=== PATIENT | female | born 1955 | race Caucasian/White ===

== ENCOUNTER 2020-09-07 15:43 | Observation (INO) | payer BC, MEDICARE, OTHER ==
[2020-09-07 16:11] LABS: BASOPHIL % 0.6 % (0.0-0.4); Basophil (Absolute #) 0.06 (0-0.4); Eosinophil % 1.7 % (0.00-5.0); Eosinophil (Absolute #) 0.16 (0-0.5); Hematocrit 39.8 % (35-47); Hemoglobin 14.3 gm/dl (12.0-16.0); Lymphocyte (Absolute #) 2.77 (1.0-4.6); Lymphocytes % 28.8 % (24.0-44.0); Mean Cell Volume 81.7 fl (78-100); Mean Corpuscular Hemoglobin 29.4 pg (26-32); Mean Corpuscular Hgb Concent. 35.9 g/dl (32-36); Mean Platelet Volume 9.8 fl (7.5-11.0); Monocyte (Absolute #) 0.72 (0.0-1.3); Monocytes % 7.5 % (0.0-12.0); Neutrophil % 61.4 % (36.0-66.0); Platelet Count 331 K/mm3 (150-450); Red Blood Count 4.87 M/mm3 (4.1-5.4); Red Cell Distribution Width 13.5 % (11.5-14.0); White Blood Count 9.6 K/mm3 (4.0-10.5)
[2020-09-07 16:19] LABS: ALKALINE PHOSPHATASE 145 U/L (38-126); ANION GAP 10.9 MEQ/L (5-15); BLOOD UREA NITROGEN 22 mg/dL (7-17); CHLORIDE 104 mmol/L (98-107); Calcium 9.8 mg/dL (8.4-10.2); Carbon Dioxide 25 mmol/L (22-30); Creatinine 1 0.71 mg/dL (0.52-1.04); EST GLOMERULAR FILTRATION RATE > 60.0 ML/MIN; Glucose 343 mg/dL (74-106); Potassium 3.8 mmol/L (3.5-5.1); SGOT/AST 38 U/L (14-36); SGPT/ALT 14 U/L (0-35); SODIUM 135 mmol/L (137-145); Total Protein 7.9 g/dL (6.3-8.2)
--- NOTE | 2020-09-07 16:19 | ERPHSYRPT ---
- History of Present Illness Time Seen by Provider: 09/07/20 15:50 Source: patient Exam Limitations: no limitations Patient Subjective Stated Complaint: Pt states "I had a stroke two years ago in september, it was a brainstem stroke. Yesterday I had a headache. Today when I woke up, i was ok, then around 10 am my speech is wrong. I am slurring and cannot get words." "My left hand feels all tingly." Triage Nursing Assessment: Pt presented alert and oriented X 3, skin pwd Pt ambulates with an upright steady gait, able to speak in full sentences pt speech slightly slurred and delayed. PT able to stand on her own. Physician History: 64 years old female with history of previous stroke with left hemianopsia and s ome issues with gait but still able to walk without assistance at baseline presented in the ER with chief complaint of slurring of speech since 10 AM. Patient reports she woke up normally and around 10 AM started to have slurring of speech which is gradually clearing up but still not at her baseline. She also report increasing wobbliness of gait than her baseline with bilateral lower extremity weakness a little more on the left than the right. She denies any weakness in the upper extremities. She also reports some tingling sensation in the left arm/hand but no weakness. Denies facial numbness/droop or difficulty swallowing. Denies any chest pain palpitations or shortness of breath. Denies any sick contact. No fever or chills reported. Patient reports she has a short-term memory loss from her previous stroke Timing/Duration: hour(s) (6), sudden Severity: mild, moderate Character of Deficits: impaired speech Deficits: no difficulties Baseline/Normal Cognition: alert oriented x 3 Current Cognition: alert oriented x 3 Associated Symptoms: nausea, slurred speech Allergies/Adverse Reactions: bee venom protein (honey bee) Allergy (Unknown, Verified 09/07/20 20:15) Vomiting patient states she is allergic to all types of bees. Hx Tetanus, Diphtheria Vaccination/Date Given: No Hx Influenza Vaccination/Date Given: No Hx Pneumococcal Vaccination/Date Given: No Immunizations Up to Date: Yes Travel Risk - International Travel Have you traveled outside of the country in past 3 weeks: No - Coronavirus Screening Are you exhibiting any of the following symptoms?: No Close contact with a COVID-19 positive Pt in past 14-21 Days: No - Review of Systems Constitutional: No Symptoms Ears, Nose, & Throat: No Symptoms Respiratory: No Symptoms Cardiac: No Symptoms Abdominal/Gastrointestinal: No Symptoms Genitourinary Symptoms: No Symptoms Musculoskeletal: No Symptoms Skin: No Symptoms Neurological: Sensory Changes Endocrine: No Symptoms Hematologic/Lymphatic: No Symptoms Immunological/Allergic: No Symptoms - Past Medical History Pertinent Past Medical History: Yes Neurological History: Stroke ENT History: No Pertinent History Cardiac History: High Cholesterol, Hypertension, Myocardial Infarction (CT) Respiratory History: No Pertinent History Endocrine Medical History: Diabetes Type I Musculoskeletal History: No Pertinent History GI Medical History: No Pertinent History History: No Pertinent History Psycho-Social History: Anxiety, Depression Female Reproductive Disorders: No Pertinent History - Past Surgical History Past Surgical History: Yes Other Surgical History: heart cath with stent placement - Social History Smoking Status: Current every day smoker How long have you smoked: 6 months Exposure to second hand smoke: Yes Drug Use: none Patient Lives Alone: Yes - Female History Hx Now: No - Nursing Vital Signs Nursing Vital Signs: Initial Vital Signs Temperature 98.0 F 09/07/20 15:45 Pulse Rate 86 09/07/20 15:45 Respiratory Rate 22 09/07/20 15:45 Blood Pressure 220/111 09/07/20 15:45 O2 Sat by Pulse Oximetry 96 09/07/20 15:45 Pain Scale Pain Intensity 0 - Jonathon Coma Scale Best Eye Response (Jonathon): (4) open spontaneously Best Verbal Response ([place]): (5) oriented Best Motor Response (Jonathon): (6) obeys commands Jonathon Total: 15 - Physical Exam General Appearance: no apparent distress, alert Eye Exam: left eye: other (Left hemianopsia), bilateral eye: normal inspection, PERRL, EOMI Ears, Nose, Throat Exam: normal ENT inspection, TMs normal, pharynx normal Neck Exam: normal inspection, non-tender, supple, full range of motion Respiratory: normal breath sounds, lungs clear Cardiovascular: regular rate/rhythm, normal heart sounds Gastrointestinal: soft, normal bowel sounds, No tenderness Back Exam: normal inspection, normal range of motion Extremity Exam: normal inspection, normal range of motion, pelvis stable Mental Status: alert, oriented x 3, cooperative pain medicine physician Exam: normal hearing, PERRL, abnormal speech, No normal speech, No facial droop, No facial paresthesias, No facial weakness Coordination/Gait: normal finger to nose, normal cerebellar function, abnormal gait Motor/Sensory: no motor deficit Skin Exam: normal color SpO2 Interpretation: normal SpO2: 96 O2 Delivery: Room Air - Course EKG Interpreted by Me: RATE, Sinus Rhythm, NORMAL AXIS, NORMAL INTERVALS, NORMAL QRS Ordered Tests: Medication Summary Discontinued Medications Generic Name Dose Route Start Last Admin Trade Name Freq PRN Reason Stop Dose Admin Acetaminophen 650 mg 09/07/20 20:03 09/09/20 05:29 Tylenol 325 Mg PO 10/07/20 20:02 650 mg Q4H PRN PRN Administration PAIN AND/OR FEVER Albuterol/Ipratropium 3 ml 09/07/20 20:03 Duoneb 0.5-3 Mg/3 Ml Neb IH 10/07/20 20:02 Q4HPRN PRN SHORTNESS OF BREATH/WHEEZING Aspirin 324 mg 09/07/20 17:45 09/07/20 17:52 Baby Aspirin 81 Mg Chew PO 09/07/20 17:46 324 mg STAT ONE Administration Aspirin Confirm 09/07/20 17:50 Baby Aspirin 81 Mg Chew Administered 09/07/20 17:51 Dose 324 mg .ROUTE .STK-MED ONE Aspirin 81 mg 09/08/20 10:00 09/09/20 11:18 Ecotrin 81 Mg PO 10/08/20 09:59 81 mg QAM RAYMON Administration Benazepril HCl 20 mg 09/08/20 10:00 09/09/20 11:18 Lotensin 10 Mg PO 10/08/20 09:59 20 mg DAILY RAYMON Administration Clopidogrel Bisulfate 75 mg 09/07/20 17:45 09/07/20 17:52 Plavix 75 Mg Tablet PO 09/07/20 17:46 75 mg STAT ONE Administration Clopidogrel Bisulfate Confirm 09/07/20 17:50 Plavix 75 Mg Tablet Administered 09/07/20 17:51 Dose 75 mg .ROUTE .STK-MED ONE Clopidogrel Bisulfate 75 mg 09/08/20 10:00 Plavix 75 Mg Tablet PO 10/08/20 09:59 DAILY RAYMON Clopidogrel Bisulfate 75 mg 09/08/20 10:00 09/09/20 11:18 Plavix 75 Mg Tablet PO 10/08/20 09:59 75 mg DAILY RAYMON Administration Ceftriaxone Sodium/Dextrose 1 g in 50 mls @ 100 mls/hr 09/07/20 18:27 09/07/20 19:25 Rocephin 1 Gm-D5w 50 Ml Bag IV 09/07/20 18:56 Infused STAT STA Infusion Ceftriaxone Sodium/Dextrose Confirm 09/07/20 18:39 Rocephin 1 Gm-D5w 50 Ml Bag Administered 09/07/20 18:40 Dose 1 g in 50 mls @ ud IV .STK-MED ONE Insulin Glargine 45 unit 09/08/20 10:00 09/09/20 11:19 Lantus Insulin SQ 10/08/20 09:59 45 unit DAILY RAYMON Administration Insulin Human Lispro 0 unit 09/07/20 20:03 Humalog SQ 10/07/20 20:02 UD PRN HYPERGLYCEMIA Insulin Human Lispro 0 unit 09/07/20 21:21 09/08/20 23:27 Humalog SQ 10/07/20 21:20 4 unit UD PRN Administration HYPERGLYCEMIA Insulin Human Regular 8 unit 09/07/20 18:12 09/07/20 18:48 Humulin R SQ 09/07/20 18:13 8 unit STAT ONE Administration Insulin Human Regular Confirm 09/07/20 18:47 Humulin R Administered 09/07/20 18:48 Dose 8 unit .ROUTE .STK-MED ONE Non-Formulary Medication 1 each 09/08/20 10:00 09/09/20 11:19 Hold Metformin Products For 48 Hours 09/10/20 10:01 1 each DAILY RAYMON Administration Ondansetron HCl 4 mg 09/07/20 20:03 09/08/20 02:31 Zofran 4 Mg/2 Ml Vial IV 10/07/20 20:02 4 mg Q6H PRN PRN Administration NAUSEA/VOMITING Pantoprazole Sodium 40 mg 09/08/20 10:00 09/09/20 11:19 Protonix 40 Mg Iv IV 10/08/20 09:59 Not Given Q24H10 RAYMON Simvastatin 40 mg 09/08/20 22:00 09/08/20 21:42 Zocor 20mg PO 10/08/20 21:59 40 mg HS RAYMON Administration Lab/Rad Data: Laboratory Result Diagrams 09/07/20 16:05 09/07/20 16:05 Laboratory Results 09/07/20 09/07/20 09/07/20 Range/Units 19:31 16:06 16:05 WBC (4.0-10.5) K/mm3 RBC (4.1-5.4) M/mm3 Hgb (12.0-16.0) gm/dl Hct (35-47) % MCV (78-100) fl MCH (26-32) pg MCHC (32-36) g/dl RDW (11.5-14.0) % Plt Count (150-450) K/mm3 MPV (7.5-11.0) fl Gran % (36.0-66.0) % Eos # (Auto) (0-0.5) Absolute Lymphs (auto) (1.0-4.6) Absolute Monos (auto) (0.0-1.3) Lymphocytes % (24.0-44.0) % Monocytes % (0.0-12.0) % Eosinophils % (0.00-5.0) % Basophils % (0.0-0.4) % Absolute Granulocytes (1.4-6.9) Basophils # (0-0.4) PT (9.95-12.35) SECONDS INR (0.8-3.0) APTT (25.3-37.0) SECONDS Sodium 135 L (137-145) mmol/L Potassium 3.8 (3.5-5.1) mmol/L Chloride 104 (98-107) mmol/L Carbon Dioxide 25 (22-30) mmol/L Anion Gap 10.9 (5-15) MEQ/L BUN 22 H (7-17) mg/dL Creatinine 0.71 (0.52-1.04) mg/dL Estimated GFR > 60.0 ML/MIN Glucose 343 H (74-106) mg/dL Calcium 9.8 (8.4-10.2) mg/dL Total Bilirubin 0.50 (0.2-1.3) mg/dL AST 38 H (14-36) U/L ALT 14 (0-35) U/L Alkaline Phosphatase 145 H (38-126) U/L Troponin I < 0.012 (0.000-0.034) ng/mL NT-Pro-B Natriuret Pep 186 (0-900) pg/mL Serum Total Protein 7.9 (6.3-8.2) g/dL Albumin 4.0 (3.5-5.0) g/dL Urine Color (YELLOW) Urine Appearance (CLEAR) Urine pH (5-6) Ur Specific [place] (1.005-1.025) Urine Protein (Negative) Urine Ketones (NEGATIVE) Urine Blood (0-5) Stew/ul Urine Nitrite (NEGATIVE) Urine Bilirubin (NEGATIVE) Urine Urobilinogen (0-1) mg/dL Ur Leukocyte Esterase (NEGATIVE) Urine WBC (Auto) (0-5) /HPF Urine RBC (Auto) (0-2) /HPF U Epithel Cells (Auto) (FEW) /HPF Urine Bacteria (Auto) (NEGATIVE) /HPF Other Casts (Auto) (NEGATIVE) /LPF Urine Mucus (Auto) (NEGATIVE) /HPF Urine Culture Reflexed (NO) Urine Glucose (NEGATIVE) mg/dL 09/07/20 09/07/20 09/07/20 Range/Units 16:05 16:00 16:00 WBC 9.6 (4.0-10.5) K/mm3 RBC 4.87 (4.1-5.4) M/mm3 Hgb 14.3 (12.0-16.0) gm/dl Hct 39.8 (35-47) % MCV 81.7 (78-100) fl MCH 29.4 (26-32) pg MCHC 35.9 (32-36) g/dl RDW 13.5 (11.5-14.0) % Plt Count 331 (150-450) K/mm3 MPV 9.8 (7.5-11.0) fl Gran % 61.4 (36.0-66.0) % Eos # (Auto) 0.16 (0-0.5) Absolute Lymphs (auto) 2.77 (1.0-4.6) Absolute Monos (auto) 0.72 (0.0-1.3) Lymphocytes % 28.8 (24.0-44.0) % Monocytes % 7.5 (0.0-12.0) % Eosinophils % 1.7 (0.00-5.0) % Basophils % 0.6 (0.0-0.4) % Absolute Granulocytes 5.90 (1.4-6.9) Basophils # 0.06 (0-0.4) PT 11.4 (9.95-12.35) SECONDS INR 1.01 (0.8-3.0) APTT 30.5 (25.3-37.0) SECONDS Sodium (137-145) mmol/L Potassium (3.5-5.1) mmol/L Chloride (98-107) mmol/L Carbon Dioxide (22-30) mmol/L Anion Gap (5-15) MEQ/L BUN (7-17) mg/dL Creatinine (0.52-1.04) mg/dL Estimated GFR ML/MIN Glucose (74-106) mg/dL Calcium (8.4-10.2) mg/dL Total Bilirubin (0.2-1.3) mg/dL AST (14-36) U/L ALT (0-35) U/L Alkaline Phosphatase (38-126) U/L Troponin I (0.000-0.034) ng/mL NT-Pro-B Natriuret Pep (0-900) pg/mL Serum Total Protein (6.3-8.2) g/dL Albumin (3.5-5.0) g/dL Urine Color YELLOW (YELLOW) Urine Appearance SLIGHTLY CLOUDY (CLEAR) Urine pH 5.0 (5-6) Ur Specific [place] 1.022 (1.005-1.025) Urine Protein >=500 (Negative) Urine Ketones NEGATIVE (NEGATIVE) Urine Blood NEGATIVE (0-5) Stew/ul Urine Nitrite NEGATIVE (NEGATIVE) Urine Bilirubin NEGATIVE (NEGATIVE) Urine Urobilinogen NEGATIVE (0-1) mg/dL Ur Leukocyte Esterase NEGATIVE (NEGATIVE) Urine WBC (Auto) 6-10 (0-5) /HPF Urine RBC (Auto) 0-2 (0-2) /HPF U Epithel Cells (Auto) NONE (FEW) /HPF Urine Bacteria (Auto) MANY (NEGATIVE) /HPF Other Casts (Auto) 5-10 (NEGATIVE) /LPF Urine Mucus (Auto) SLIGHT (NEGATIVE) /HPF Urine Culture Reflexed YES (NO) Urine Glucose >=500 (NEGATIVE) mg/dL 09/07/20 Range/Units 16:00 WBC (4.0-10.5) K/mm3 RBC (4.1-5.4) M/mm3 Hgb (12.0-16.0) gm/dl Hct (35-47) % MCV (78-100) fl MCH (26-32) pg MCHC (32-36) g/dl RDW (11.5-14.0) % Plt Count (150-450) K/mm3 MPV (7.5-11.0) fl Gran % (36.0-66.0) % Eos # (Auto) (0-0.5) Absolute Lymphs (auto) (1.0-4.6) Absolute Monos (auto) (0.0-1.3) Lymphocytes % (24.0-44.0) % Monocytes % (0.0-12.0) % Eosinophils % (0.00-5.0) % Basophils % (0.0-0.4) % Absolute Granulocytes (1.4-6.9) Basophils # (0-0.4) PT (9.95-12.35) SECONDS INR (0.8-3.0) APTT (25.3-37.0) SECONDS Sodium (137-145) mmol/L Potassium (3.5-5.1) mmol/L Chloride (98-107) mmol/L Carbon Dioxide (22-30) mmol/L Anion Gap (5-15) MEQ/L BUN (7-17) mg/dL Creatinine (0.52-1.04) mg/dL Estimated GFR ML/MIN Glucose (74-106) mg/dL Calcium (8.4-10.2) mg/dL Total Bilirubin (0.2-1.3) mg/dL AST (14-36) U/L ALT (0-35) U/L Alkaline Phosphatase (38-126) U/L Troponin I < 0.012 (0.000-0.034) ng/mL NT-Pro-B Natriuret Pep (0-900) pg/mL Serum Total Protein (6.3-8.2) g/dL Albumin (3.5-5.0) g/dL Urine Color (YELLOW) Urine Appearance (CLEAR) Urine pH (5-6) Ur Specific [place] (1.005-1.025) Urine Protein (Negative) Urine Ketones (NEGATIVE) Urine Blood (0-5) Stew/ul Urine Nitrite (NEGATIVE) Urine Bilirubin (NEGATIVE) Urine Urobilinogen (0-1) mg/dL Ur Leukocyte Esterase (NEGATIVE) Urine WBC (Auto) (0-5) /HPF Urine RBC (Auto) (0-2) /HPF U Epithel Cells (Auto) (FEW) /HPF Urine Bacteria (Auto) (NEGATIVE) /HPF Other Casts (Auto) (NEGATIVE) /LPF Urine Mucus (Auto) (NEGATIVE) /HPF Urine Culture Reflexed (NO) Urine Glucose (NEGATIVE) mg/dL - Progress Progress: unchanged, re-examined Progress Note: 09/07/20 18:53 64 years old is evaluated in the ER for slurred speech with left arm/hand tingling and left lower extremity weakness with some gait changes since 10 AM. She is out of the window for TPA. Patient reported to [facility] neurology that she might have got up this morning with the symptoms but to me she states that it started around 10 AM. Patient does have short-term memory loss so history is not very reliable. She is out of the window definitely for any TPA. She has a NIH score of around 3/4. CT head is negative for any acute findings. Grossly unremarkable chemistries except for elevated blood glucose and is given insulin. Chest x-ray negative for any acute cardiopulmonary findings. [facility] recommended full dose aspirin and Plavix and doing CT angio head and neck to rule out large vessel occlusion. If there is an occlusion then will contact neuro interventional list but if negative patient was recommended to be admitted. [facility] recommended telemetry to evaluation for A. fib/paroxysmal A. fib/echo/MRI, fasting lipids. Recommended blood pressure for first 24-hour to keep it lower than 220/120. Patient will be started on Lipitor after speech and swallow evaluation is done at bedside by RN. Have UTI and started on Rocephin. Patient discussed with Dr. Smiley, reviewed presentation, objective findings, labs and neurology recommendation and patient is accepted for admission. CTA results are pending and I have discussed with Dr. Gallardo who is coming on the shift that if has large vessel occlusion patient needed to be transferred which he agrees with. Discussed with : [place], Other (Dr. Maguire [facility] neurology) Counseled pt/family regarding: lab results, diagnosis, rad results, smoking cessation - Departure Departure Disposition: In-patient Admission Clinical Impression: Hyperglycemia, Uncontrolled hypertension Stroke Qualifiers: CVA mechanism: unspecified Qualified Code(s): I63.9 - Cerebral infarction, unspecified UTI (urinary tract infection) Qualifiers: Urinary tract infection type: site unspecified Hematuria presence: without hematuria Qualified Code(s): N39.0 - Urinary tract infection, site not specified Condition: Stable Critical Care Time: Yes Critical Care Time(excluding separately billable procedures): Critical 30-74 mins
--- NOTE | 2020-09-07 16:27 | XRAY ---
Indication: Weakness. Slurred speech. Multiple contiguous axial images obtained through the head without contrast. Comparison: None Age-appropriate global atrophy, mild periventricular degenerative micro-ischemia bilaterally, and old right occipital lobe infarct. No acute intracranial hemorrhage, hydrocephalus, or mass effect. Fourth ventricle is midline. Bony calvarium intact. Visualized paranasal sinuses and mastoid air cells are clear. Impression: Nonacute senile brain with old right occipital lobe infarct.
--- NOTE | 2020-09-07 16:45 | XRAY ---
Indication: Weakness. Slurred speech. Comparison: None Portable chest demonstrates normal heart and lungs. Bony thoracic intact with mild osteopenia and degenerative changes including right shoulder heterotopic ossifications.
[2020-09-07 17:14] LABS: INR 1.01 (0.8-3.0); PROTIME 11.4 SECONDS (9.95-12.35)
[2020-09-07 17:17] LABS: PTT 30.5 SECONDS (25.3-37.0)
[2020-09-07] MEDS ORDERED: BABY ASPIRIN 81 MG CHEW PO ONE (17:45)
[2020-09-07] MEDS ORDERED: PLAVIX 75 MG Tablet PO ONE (17:45)
[2020-09-07] MEDS ORDERED: PLAVIX 75 MG Tablet ONE (17:50)
[2020-09-07] MEDS ORDERED: BABY ASPIRIN 81 MG CHEW ONE (17:50)
[2020-09-07] MEDS ORDERED: HUMULIN R SQ ONE (18:12)
[2020-09-07 18:16] LABS: Appearance SLIGHTLY CLOUDY (CLEAR); Bacteria MANY /HPF (NEGATIVE); Bilirubin NEGATIVE (NEGATIVE); Blood NEGATIVE Ery/ul (0-5); Glucose >=500 mg/dL (NEGATIVE); Ketones NEGATIVE (NEGATIVE); Leukocyte Esterase NEGATIVE (NEGATIVE); Mucus SLIGHT /HPF (NEGATIVE); Nitrite NEGATIVE (NEGATIVE); Protein,Urine Dip >=500 (Negative); RBC 0-2 /HPF (0-2); Specific Gravity 1.022 (1.005-1.025); Urobilinogen NEGATIVE mg/dL (0-1)
[2020-09-07] MEDS ORDERED: ROCEPHIN 1 Gm-D5w 50 ml Bag** 1 G/50 ML IVPB IV STA (18:27)
[2020-09-07] MEDS ORDERED: ROCEPHIN 1 Gm-D5w 50 ml Bag** 1 G/50 ML IVPB IV ONE (18:39)
[2020-09-07] MEDS ORDERED: HUMULIN R ONE (18:47)
[2020-09-07] MEDS ORDERED: DUONEB 0.5-3 MG/3 ml Neb IH PRN (20:03)
[2020-09-07] MEDS ORDERED: Zofran 4 MG/2 ML VIAL IV PRN (20:03)
[2020-09-07] MEDS ORDERED: HUMALOG SQ PRN (20:03)
[2020-09-07] MEDS: HUMALOG SQ PRN (22:22)
[2020-09-07] MEDS: TYLENOL 325 MG PO PRN (23:07)
[2020-09-08 05:47] LABS: Absolute Neutrophil Ct (ANC) 5.82 (1.4-6.9); BASOPHIL % 0.8 % (0.0-0.4); Basophil (Absolute #) 0.07 (0-0.4); Eosinophil % 1.5 % (0.00-5.0); Eosinophil (Absolute #) 0.13 (0-0.5); Hematocrit 37.1 % (35-47); Lymphocyte (Absolute #) 2.04 (1.0-4.6); Lymphocytes % 23.7 % (24.0-44.0); Mean Cell Volume 83.6 fl (78-100); Mean Corpuscular Hemoglobin 29.3 pg (26-32); Mean Platelet Volume 10.6 fl (7.5-11.0); Monocyte (Absolute #) 0.55 (0.0-1.3); Monocytes % 6.4 % (0.0-12.0); Neutrophil % 67.6 % (36.0-66.0); Platelet Count 277 K/mm3 (150-450); Red Blood Count 4.44 M/mm3 (4.1-5.4); Red Cell Distribution Width 13.7 % (11.5-14.0); White Blood Count 8.6 K/mm3 (4.0-10.5)
[2020-09-08 06:11] LABS: ALBUMIN 3.5 g/dL (3.5-5.0); ALKALINE PHOSPHATASE 115 U/L (38-126); ANION GAP 7.8 MEQ/L (5-15); BLOOD UREA NITROGEN 23 mg/dL (7-17); CHLORIDE 104 mmol/L (98-107); Calcium 9.3 mg/dL (8.4-10.2); Carbon Dioxide 28 mmol/L (22-30); Creatinine 1 0.77 mg/dL (0.52-1.04); EST GLOMERULAR FILTRATION RATE > 60.0 ML/MIN; Glucose 212 mg/dL (74-106); Potassium 3.5 mmol/L (3.5-5.1); SGOT/AST 35 U/L (14-36); SGPT/ALT 11 U/L (0-35); SODIUM 136 mmol/L (137-145); Total Protein 7.1 g/dL (6.3-8.2)
--- NOTE | 2020-09-08 08:48 | XRAY ---
Indication: Weakness. Slurred speech. Conventional contrast enhanced CTA neck performed using 100 cc Isovue 370 contrast. Two-dimensional sagittal and coronal reformatted images obtained. Additional 3-dimensional reformatted images obtained using a separate workstation. Comparison: None Examination of the left carotid circulation demonstrates widely patent common carotid artery. At the level of the bulb, there is mild/moderate eccentric calcified plaquing slightly extending into the origin of the internal carotid artery producing 60-70% stenosis. Remaining internal and external carotid arteries are normal in CTA appearance. Examination of the right carotid circulation demonstrates widely patent common carotid artery. At the level of the bulb, there is minimal soft plaquing extending into the origin of the internal carotid artery producing 20-30% stenosis. Remaining internal and external carotid arteries are normal in CTA appearance. Vertebral arteries demonstrates the left vertebral artery slightly larger in caliber. No critical stenosis, obstruction, or AV malformation. CT head and CTA head reported separately. Supra and infraglottic airway are widely patent. Thyroid gland enhances homogeneously. No pathologic cervical/supraclavicular lymphadenopathy. Osseous structures intact with mild osteopenia and mild/moderate C5-C7 degenerative disc disease. Lung apices are clear. Impression: 1. Calcified plaquing left carotid bulb and origin internal carotid artery producing 60-70% stenosis. 2. Soft plaquing right carotid bulb and origin internal carotid artery producing 20-30% stenosis. 3. Incidental osteopenia and C5-C7 degenerative changes.
--- NOTE | 2020-09-08 08:54 | XRAY ---
Indication: Weakness. Slurred speech. Conventional contrast enhanced CTA brain performed using 100 cc Isovue 370 contrast. Two-dimensional sagittal and coronal reformatted images obtained. Additional 3-dimensional reformatted images obtained using a separate workstation. Comparison: None Distal internal carotid arteries demonstrates moderate scattered calcified plaquing seen in the parasellar segments bilaterally. No critical stenosis, obstruction, or AV malformation. Normal carotid terminus with branching A1 and M1 segments bilaterally. More distal anterior cerebral, middle cerebral, anterior communicating, and left posterior communicating arteries are normal in CTA appearance. Right posterior communicating artery not identified presumed too small for slice acquisition. Posterior circulation demonstrates basilar artery to be normal in course and caliber with normal CTA appearance to the basilar tip, posterior cerebral, and superior cerebellar arteries. Remaining whole brain negative for abnormal enhancing intra-or extra-axial mass. CT head and CTA neck reported separately. Impression: Bilaterally scattered calcified plaquing in the parasellar segments of the internal carotid arteries without critical stenosis/obstruction. Remaining CTA brain is negative.
--- NOTE | 2020-09-08 09:04 | HP ---
CHIEF COMPLAINT: Left-sided weakness and numbness left arm and leg. HISTORY OF PRESENT ILLNESS: The patient is a 64 year old white female who woke up with complaints of left-sided weakness, facial droop, numb and tingling in the left arm. The patient was brought to the emergency room where she was confirmed to have CVA with left hemiparesis. The patient apparently had a CVA a few years back involving her right side which nearly completely resolved. She was supposed to be on Plavix but she has not been taking. Tele-neurology consult was done in the emergency room who recommended CT-A of the head which apparently was negative. CT scan was also likewise negative. Tele-neurology consult recommended adding aspirin to the Plavix but on further review it said the patient has not been taking the Plavix either. The patient sees Dr. Hernandez in [place] routinely. PAST MEDICAL/SURGICAL HISTORY: She currently also has diabetes for which she is on insulin, hyperlipidemia, hypertension. The patient otherwise has no other medical problems to our knowledge. PHYSICAL EXAMINATION: Her vital signs on admission showed her temperature to be 98.0F, pulse 86, respiratory rate 22 and blood pressure 220/111. O2 saturation 96%. HEENT: At this time shows a left facial droop and slurring of speech. NECK: Supple without lymphadenopathy, thyromegaly or JVD. CHEST: Clear to auscultation. HEART: Regular rhythm. ABDOMEN: Soft. EXTREMITIES: No cyanosis, clubbing or edema. NEUROLOGIC: There are focal deficits on the left side involving dense hemiparesis of the left leg and left arm. LAB DATA AND TESTS: CT scan and CT-A of the head which were negative. She did have UA which was essentially negative. Troponin was less than 0.012. Her ProBNP was 186. CBC was totally normal. Metabolic panel showed sugar 343, BUN 22, creatinine 0.71, sodium slightly low at 135. SGOT slightly elevated at 38. SGPT was normal. INR was 1.01. ASSESSMENT: A patient with CVA. She has been admitted to the hospital. We will obtain swallowing study to rule out risk for aspiration. She will receive physical therapy and occupational therapy evaluations to determine her capability for rehab. She has been placed on aspirin and Plavix as per the tele-neurology consult and she will continue her usual home medications. She has been placed on sliding scale coverage for her diabetes, will check A1C and a lipid panel otherwise.
[2020-09-08] MEDS ORDERED: INSULIN DETEMIR 45 UNIT SQ SCH (10:00)
[2020-09-08] MEDS ORDERED: PLAVIX 75 MG Tablet PO SCH (10:00)
[2020-09-08] MEDS ORDERED: NON-FORMULARY ITEM (Atorvastatin Calcium [Lipitor] 1 TAB) PO SCH (10:00)
[2020-09-08] MEDS ORDERED: BENAZEPRIL HCL PO SCH (10:00)
[2020-09-08] MEDS ORDERED: BABY ASPIRIN 81 MG CHEW PO SCH (10:00)
[2020-09-08 10:14] LABS: Risk Ratio 7.3
[2020-09-08] MEDS: ECOTRIN 81 MG PO SCH (10:40)
[2020-09-08] MEDS: Lotensin 10 MG PO SCH (10:40)
[2020-09-08] MEDS: PROTONIX 40 MG IV IV SCH (10:41)
[2020-09-08] MEDS: HOLD METFORMIN PRODUCTS FOR 48 HOURS MC SCH (10:41)
[2020-09-08] MEDS: PLAVIX 75 MG Tablet PO SCH (10:41)
[2020-09-08] MEDS: Lantus Insulin SQ SCH ×2 (10:42→12:06)
[2020-09-08] MEDS: HUMALOG SQ PRN ×2 (12:05→23:27)
--- NOTE | 2020-09-08 15:15 | XRAY ---
Indication: Stroke. Trouble swallowing. Modified barium swallow study was performed by the department of speech therapy with fluoroscopic assistance provided. Patient ingested multiple consistencies of liquids and solids. Full report and recommendations will be reported separately. Approximately 1 minute 44 seconds fluoroscopy used.
[2020-09-08] MEDS: TYLENOL 325 MG PO PRN (21:43)
[2020-09-08] MEDS ORDERED: ZOCOR 20MG PO SCH (22:00)
[2020-09-09] MEDS: TYLENOL 325 MG PO PRN (05:29)
[2020-09-09 06:33] VITALS: BP 175/84; PULSE 74; O2SAT 96
[2020-09-09] MEDS: ECOTRIN 81 MG PO SCH (11:18)
[2020-09-09] MEDS: PLAVIX 75 MG Tablet PO SCH (11:18)
[2020-09-09] MEDS: Lotensin 10 MG PO SCH (11:18)
[2020-09-09] MEDS: PROTONIX 40 MG IV IV SCH (11:19)
[2020-09-09] MEDS: HOLD METFORMIN PRODUCTS FOR 48 HOURS MC SCH (11:19)
[2020-09-09] MEDS: Lantus Insulin SQ SCH (11:19)
--- NOTE | 2020-09-12 15:08 | DS ---
DISCHARGE DIAGNOSIS: CEREBROVASCULAR ACCIDENT, LEFT HEMIPARESIS HISTORY: The patient is a 64 year old white female presented to the emergency room with the complaints of recurrent stroke symptoms. She awoke unable to move her left side. She had left facial droop and dense hemiparesis unable to move the right arm or leg. 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 She is a patient normally of Dr. Hernandez and she has apparently not seen him in a while and she is unsure whether she actually ran out of her Plavix or not. The patient had tele-neurology consult in the emergency room which recommended admission to the hospital. CT-A of the brain was performed and was negative. Initial CT scan showed no evidence of acute injury. The patient was not a candidate for revascularization procedures due to the length of time that she had her symptoms. PAST MEDICAL/SURGICAL HISTORY: Significant for diabetes mellitus. The patient's control has been very poor as her A1C was significantly high. HOME MEDICATIONS: Insulin which she takes. She currently has Plavix at home which she like has not been taking. Her home medications otherwise will be restarted for her including the Plavix 75 mg a day along with aspirin 81 mg a day. Other home medications are atorvastatin, benazepril, and Humalog. ALLERGIES: NKDA. PHYSICAL EXAMINATION: At this time revealed a well-nourished, well-developed 64 year old white female in no obvious distress. HEENT: Reveals the left facial droop. NECK: Supple. No masses. CHEST: Clear to auscultation. HEART: Regular rate and rhythm. ABDOMEN: Soft. No palpable masses. EXTREMITIES: Again revealed the dense left hemiparesis. LAB DATA AND TESTS: The patient's initial labs showed her urine to have greater than 100 protein and greater than 500 glucose, specific gravity 1.022. Troponin less than 1.102 on two occasions. ProBNP was 186. CBC was totally normal. Metabolic panel showed the glucose 343, BUN 22, creatinine 0.71. Electrolytes were essentially normal. INR 1.01. She had a urine culture which was no growth to date at this point. Her lipid panel showed her cholesterol to be 285 with LDL 151. Her A1C was 11.78. It is likely the patient has not been taking her medications at home. HOSPITAL COURSE: She will be discharged home at this time as the patient had a swallowing study which showed no aspiration. The patient has decided to have outpatient rehab and wishes to go home. She reports that her daughter will be coming from [place] to take care of her and she has a grandson who sees her every day as well. She was discharged home with follow up as an outpatient occupational therapy and physical therapy at our facility. She was instructed to see her family doctor, Dr. Hernandez, as soon as possible. We will refill her medications at home presently so she has all of her medications that she needs presently.
== END 2020-09-09 12:25 | disposition home or self-care (01) ==
LOC: ED 15:43 → INTOOBSV 19:54 → MED SURG 19:54
PROVIDERS: ADMIT Family Medicine; ATTEND Family Medicine
DX: I63.9 Cerebral infarction, unspecified (principal); I69.354 Hemiplegia and hemiparesis following cerebral infarction affecting left non-dominant side; R53.1 Weakness; E11.9 Type 2 diabetes mellitus without complications; I10 Essential (primary) hypertension; E78.5 Hyperlipidemia, unspecified; Z79.01 Long term (current) use of anticoagulants; Z79.899 Other long term (current) drug therapy
CPT/HCPCS: 36415; 70450; 70496; 70498; 74230; 80053; 80061; 81001; 82947; 83036; 83721; 83880; 84484; 85025; 85610; 85730; 87086; 92611; 93005; 93306; 94760; 96365; 96372; 97161; 97165; 99291; G0378; Q3014; 36000; 71045; 99285; J0696; J1815; J1817; J2405; A9270-GY